=== PATIENT | male | born 1980 | race Caucasian/White ===

== ENCOUNTER → 2020-06-16 08:53 | Outpatient (CLI) | payer BC, SELFPAY ==
[2020-05-22 08:49] VITALS: BMI 28.9
[2020-06-16 12:42] LABS: Absolute Lymphocyte Count 1.97 X10^3/uL (0.83-4.51); Absolute Neutrophil Count 2.2 X10^3/uL (2.0-7.7); Basophil# 0.03 X10^3/uL; Basophil% 0.6 % (0-1); Eosinophil# 0.07 X10^3/uL; Eosinophils% 1.5 % (0-5); Hematocrit 47.1 % (40-54); Hemoglobin 15.2 g/dL (13.0-16.5); Lymphocyte # 1.97 X10^3/ul (4.0); Lymphocyte % 41.4 % (19-41); Mean Corp Hgb Conc 32.3 g/dL (32-36); Mean Corpuscular Hgb 29.2 pg (27.0-32.0); Mean Corpuscular Volume 90.4 fL (80-94); Mean Platelet Vol. 9.2 fl (6.2-12.0); Monocyte# 0.51 X10^3/uL; Monocyte% 10.7 % (0-10); NRBC Flagged by Analyzer 0 % (0-5); Neutrophil # 2.17 X10^3/uL (2.7-7.7); Neutrophil % 45.6 % (47-70); Platelet Count 298 K/mm3 (150-450); RBC Distribution Width CV 12.1 % (11.6-14.6); RBC Distribution Width SD 40.4 fl (35.1-43.9); Red Blood Count 5.21 M/mm3 (4.6-6.2); White Blood Count 4.8 K/mm3 (4.4-11.0)
[2020-06-16 13:17] LABS: ALB/GLOB Ratio 1.1 RATIO (0.9-2.4); AST(SGOT) 14 U/L (15-37); Alanine Aminotransfer ALT/SGPT 28 U/L (16-61); Albumin, Serum 4.2 g/dL (3.2-5.0); Alkaline Phosphatase 79 U/L (45-117); Anion Gap 5 (5-15); BUN 14 mg/dL (7-18); Calcium,Total 8.9 mg/dL (8.5-10.1); Chloride 104 mmol/L (98-107); Cholesterol 180 mg/dL (200); Creatinine, Serum 0.93 mg/dL (0.70-1.30); EST Glomerular Filtration Rate 95 mL/min (>60); Est Glom Filt Rate - Afr Amer 115 mL/min (>60); Globulin 3.8 g/dL (2.2-4.2); Glucose 101 mg/dL (74-106); High Density Lipoprotein 37 mg/dL; PSA,Total - Annual Screen 0.59 ng/mL (0.00-4.00); Potassium 4.3 mmol/L (3.5-5.1); Sodium Level 138 mmol/L (136-145); Triglycerides 86 mg/dL; Very Low Density Lipoprotein 17 mg/dL (5-40)
[2020-06-16 13:38] LABS: Hemoglobin A1c 5.6 % (3.8-5.6)
== END ==
PROVIDERS: PCP Internal Medicine; Referring Provider Internal Medicine; Visit Provider Internal Medicine
DX: K42.9 Umbilical hernia without obstruction or gangrene (principal); Z12.5 Encounter for screening for malignant neoplasm of prostate; Z13.1 Encounter for screening for diabetes mellitus; Z13.220 Encounter for screening for lipoid disorders; Z76.89 Persons encountering health services in other specified circumstances
CPT/HCPCS: 36415; 80053; 80061; 83036; 84153; 85025; G0103

== ENCOUNTER 2020-06-17 05:46 | Day surgery (SDC) | payer BC, SELFPAY ==
[2020-05-22 08:49] VITALS: BMI 28.9
--- NOTE | 2020-06-17 05:57 | PCM.HP.BLA ---
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 Jesus Hoff MD) Umbilical hernia without obstruction and without gangrene (Acute) Encounter for sterilization (Acute) Back problem (Chronic) History of fracture of leg (Acute) History of fracture of arm (Acute) Surgical History (Updated 05/22/20 @ 08:49 by Rachna López) History of repair of laceration (Acute) History of surgery on left wrist (Acute) History of tonsillectomy (Acute) Family History Mother Thyroid disorder Heart disease Father Heart disease Grandmother Hypertension Kidney disease Diabetes Cancer pancreatic Grandfather Heart disease Other Aneurysm Myocardial infarction Social History (Updated 05/22/20 @ 09:[address] Jesus Hoff MD) Smoking Status: Never smoker alcohol intake: current alcohol intake frequency: a few times a month substance use type: does not use what type of physical activity do you participate in: none HPI HPI HPI: VIOLETA SLAUGHTER is a 39 M who presents to the office today for surgical consultation for consideration of bilateral partial vasectomy as a means of sterilization as well as treatment of his symptomatic umbilical hernia. The patient is referred by his primary care physician Dr. Greer Gonzalez and a written copy of my surgical consult and recommendations will return to him. For quite a period of time the patient has been having intermittent periumbilical discomfort. He himself was never aware that he had an umbilical hernia. This was detected on recent clinical examination per Dr. Gonzalez. The patient works at [employer]. He does a variety of different tasks. Some of it does involve lifting. He does not recall any specific injury. He is also requesting consideration for bilateral partial vasectomy as a means of sterilization HPI HPI HPI: VIOLETA SLAUGHTER is a 39 M who presents to the office today for ROS General General: No weight change, appetite, fatigue, colon cancer, breast cancer or weakness HEENT HEENT: No difficulty swallowing, eye injury, eye surgery, swollen glands or hoarseness Endo Endocrine: No thyroid disease, diabetes mellitus, thyroid cancer, Hair loss, heat intolerance or cold intolerance Musc Musculoskeletal: No back problems, arthritis, rheumatoid arthritis, gout or joint pain Cardio Cardiovascular: No murmur, pacemaker, heart disease, atrial fibrillation, high blood pressure, heart attack, heart stent, palpitations, shortness of breat with exertion or chest pain Psych Psychiatric: No depression, anxiety or hearing voices Resp Respiratory: No shortness of breath, No sleep apnea, No cough, No COPD, No asthma, No emphysema, No wheezing Gastro Gastrointestinal: No abdominal pain, No nausea or vomiting, No diarrhea, No constipation, No blood in stool, No acid reflux, No hemorrhoids, No ulcers, No gallbladder problem, No black,tarry stools Juan Hematologic: No blood thinners, No blood disorders, No bleeding, No anemia, No blood clots Neuro Neurologic: No weakness Exam Const General: cooperative, healthy appearing, comfortable, no acute distress Nutritional Appearance: overweight Orientation: alert, awake [facility] [place] Head: normal to inspection Eyes General: appearance normal, both eyes and all related structures Chest Chest palpation & inspection: normal inspection of the chest Resp Effort & Inspection: normal respiratory effort Auscultation: clear to auscultation bilaterally Cardio Rate: regular rate Rhythm: regular rhythm Heart Sounds: no murmurs GI Palpation: soft, no hepatosplenomegaly Other: Small umbilical hernia, slightly tender to deep palpation, partially reducible, no findings to suggest bowel involvement Other: Testicles are descended, no focal mass, vas deferens are palpable, groins are solid, no obvious inguinal defects Musc Cervical Spine: normal cervical lordosis Skin General: no rashes or lesions noted Neuro Cognition: normal cognition Extrem General: no calf tenderness Psych Affect: normal affect Assessment & Plan Problems 1. Encounter for sterilization Z30.2 2. Umbilical hernia without obstruction and without gangrene K42.9 Plan Encounter for sterilization. I have described the technique, benefit, risk, alternatives. Absolutely no guarantees of success of been offered. The patient has additionally been provided written descriptive information. He is aware that no guarantees of success were offered. He is additionally aware that I consider this to be a permanent technique. He is aware that it is his responsibility perform semen specimen submission post procedure. He has had an opportunity to ask no questions answered he is comfortable with the discussion would like to schedule and proceed as noted. On clinical examination and purpose for his referral he has a symptomatic umbilical hernia. I suspect that there is some fibrofatty preperitoneal tissue present. I propose for him a direct repair at the umbilical site. I would anticipate utilizing a Ventralex mesh. I also discussed technique, benefit, risk, alternatives. He has had an opportunity to ask and have questions answered in addition he would like to schedule. I believe that both of these procedures can be performed in a combined technique in the operating room under general anesthesia. I appreciate the opportunity of assisting with her surgical care. Copy: Dr. Greer Hoff M.D., F.A.C.S. Coding Level of Care Code 23108 Diagnoses Encounter for sterilization Z30.2 Umbilical hernia without obstruction and without gangrene K42.9 I have re-examined the patient. There are no clinical changes since date of exam. Procedure Criteria Procedure Type: Elective COVID Risk Discussion: The surgeon/proceduralist and patient have discussed in detail the risk of exposure to and/or potential harm posed by the COVID-19 virus with having a surgery/procedure at this time versus the risk of delaying the surgery/procedure. It is not possible to know either the risk of delaying the surgery or procedure or chance of getting an infection with perfect accuracy, but a joint decision was made between the patient and the surgeon/proceduralist to proceed at this time with the scheduled surgery/procedure as indicated on the consent form.
--- NOTE | 2020-06-17 06:18 | DCINST_ITS ---
Discharge Diet: Light diet - advance as tolerated - if you have questions about your diet instructions, please talk to you doctor. Discharge Activity: May Not Drive - for 3-5 days or while taking narcotic pain medicine. May shower in (days): 1 Lifting Restrictions: 10 pounds Call your doctor if your incision/area has: Continuous Slow Oozing, Sudden Increased Bleeding, Increased Pain/ Swelling, Increased Redness, Foul Smelling Discharge Call your doctor if you observe: Fever of 101 or Higher Suture Line Care: Avoid Pulling/Pushing, Avoid Pinching/Bending Additional Dressing/Incision Instructions:: Change or remove dressing in 4 days. Leave steri-strips in place for 1 week. You may apply a very small amount of antibiotic ointment to the suture site bilateral scrotum. Utilize dry gauze to help protect the small incisions from clothing. Use supportive undergarments. You may liberally use ice to help limit swelling. Allergies/Adverse Reactions: Allergies No Known Allergies Allergy (Verified 06/10/20 09:01) Medications to take at Discharge NK 05/08/20 Primary Care Physician: Greer Gonzalez MD [Primary Care Provider] - Test Results: Test results from this visit will be discussed in further detail at your follow- up appointment, if applicable. Please Follow Up With: Jesus Hoff MD - [phone] When: Call to make an appointment to be seen in about 10 days.
[2020-06-17 06:35] VITALS: BP 127/92; PULSE 84; RESP 16; TEMP 36.6; O2SAT 98; BMI 28.9
[2020-06-17] MEDS: Lactated Ringers 1,000 ML 75 ML IV (07:30)
--- NOTE | 2020-06-17 07:30 | VAS_PTH ---
PATIENT: VIOLETA SLAUGHTER LOC: [facility] [place] U#:[id number] AGE/SX: 39/M ROOM: RE06/17/[address]: Dr. Jesus Hoff MD : 1980 BED: DIS: 06/17/2020 SPEC #: [id number] RECD: 06/17/20 09:23 STATUS: SEAMUS JENNA #: [id number] WERNER: 06/17/20 07:[address]: Jesus Hoff DEPT: SURGICAL PATHOLOGY RECD BY: Luisa Bingham ENTERED: 06/17/20 10:35 SP TYPE: VAS OTHR DR: Dr. Greer Gonzalez MD Tissues: A - Vas deferens, NOS B - Vas deferens, NOS Procedures: Surgery Specimen Level II HEADER OPERATION: Umbilical hernia repair with mesh and partial vasectomy PRE-OP DIAGNOSIS: Umbilical hernia; sterilization TISSUE SUBMITTED: A - Right vas deferens, B - Left vas deferens MICROSCOPIC DIAGNOSIS A. Right vas deferens, segmental vasectomy: Complete cross-section of vas deferens with no pathologic change. B. Left vas deferens, segmental vasectomy: Complete cross-section of vas deferens with no pathologic change. AM:betzy 06/18/2020 MICROSCOPIC DESCRIPTION Slides are reviewed. GROSS DESCRIPTION A - Received is one container designated right vas deferens. The specimen consists of a tubular segment of lam soft tissue measuring 2 cm in length and 0.2 cm in diameter. The entire specimen is submitted in one cassette. It will be sectioned at the time of embedding. B - Received is one container designated left vas deferens. The specimen consists of a tubular segment of lam soft tissue measuring 1.6 cm in length and 0.2 cm in diameter. The entire specimen is submitted in one cassette. It will be sectioned at the time of embedding. / SJ:betzy 06/17/20 TC:4 CPT: 94576 x2
[2020-06-17] MEDS: Cefazolin 2 GM in 0.9% Normal Saline 100 ML IV (08:08)
[2020-06-17] MEDS: Bupivacaine Mpf 0.5% 30 ML VIAL (08:48)
--- NOTE | 2020-06-17 08:59 | PCM.OPRPT ---
Problem List (1) Umbilical hernia without obstruction and without gangrene Status: Acute (2) Encounter for sterilization Status: Acute Report of Operation Date of Procedure: 06/17/20 Pre-Operative Diagnosis: Umbilical hernia, encounter for sterilization Post-Operative Diagnosis: Same Surgery/Procedure Performed:: Medical herniorrhaphy with 6.4 cm ventralex mesh reference #[id number]. Lot number [id number], expiry date 04/19/2021. Bilateral partial vasectomy Description of Surgical Findings:: Timeout and informed consent was obtained. 39-year-old gentleman was taken to the operating placed on the table. He became evident that the right antecubital IV placed in a C was intra-arterial. Verbal report suggested anesthesia provided small amount of Versed through that IV before it was recognized. A new IV was started in the left arm. Patient underwent general endotracheal intubation anesthesia. Ancef 2 g given in the imaged preoperatively. Once the procedure proceeded anesthesia remove the right antecubital IV/his intra-arterial line. The hand was monitored. There was felt to be no adverse effect. Hand appeared to be viable there is no expansion at the antecubital space there is good distal pulse and capillary refill The abdomen was sterilely prepped and draped. Scrotal area was clipper and Betadine.. A curvilinear incision was made the inferior portion of the umbilicus sharp and blunt dissection was used to identify the preperitoneal fat within a 1.5 cm umbilical hernia. That preperitoneal tissue was completely inverted and the preperitoneal plane created. A 6.4 cm Ventralex mesh was inserted into the preperitoneal plane the tails were secured with interrupted 0 Nurolon. Good positioning and securement was achieved. The fascia was approximated with a 0 Nurolon. Central suture was used to affix to the mesh holding it in place. Skin edges approximated opted for Monocryl subdermal stitches. The periincisional areas anesthetized with 0.5% Marcaine a total of 20 cc. Steri-Strips Telfa cottonball OpSite dressing applied. Counts correct. Attention was drawn to the scrotal area. 0.5% Marcaine was instilled as well. Small bilateral scrotal incisions were created the vas deferens identified it was dissected free the ends were crushed segments were excised and the ends were secured with 3-0 chromic inverted and resecured. The skin edges approximated simple sutures of 3-0 chromic. Topical antibiotic ointment applied followed by gauze and compressive dressing. The specimens were individually submitted in formalin for analysis. Bilateral segments of vas deferens. Drains none. Blood loss minimal. The patient was taken to the recovery room. Jesus Hoff M.D., F.A.C.S. Type of Anesthesia:: General Anesthesiologist: Danny Eisenberg
[2020-06-17 09:10] VITALS: BP 116/81; BP 127/92; PULSE 68; RESP 16; TEMP 36.5; O2SAT 94
[2020-06-17 09:15] VITALS: BP 127/92; BP 99/79; PULSE 66; RESP 16; O2SAT 94
[2020-06-17 09:30] VITALS: BP 112/77; BP 127/92; PULSE 70; RESP 16; O2SAT 100
[2020-06-17 09:45] VITALS: BP 113/74; BP 127/92; PULSE 67; RESP 16; TEMP 36.6; O2SAT 100
[2020-06-17 11:25] VITALS: BP 127/92; BP 130/79; PULSE 70; RESP 16; TEMP 36.5; O2SAT 98
== END 2020-06-17 11:26 | disposition home or self-care (01) ==
LOC: SDC 05:47 → AC 05:47
PROVIDERS: PCP Internal Medicine; Referring Provider Surgery; Visit Provider Surgery
PROC: (CPT 49585; principal; 2020-06-17 07:15)
DX: E66.3 Overweight (principal); K42.9 Umbilical hernia without obstruction or gangrene; Z30.2 Encounter for sterilization; Z68.28 Body mass index [BMI] 28.0-28.9, adult; Z20.822 Contact with and (suspected) exposure to COVID-19
CPT/HCPCS: 00830; 49585; 55250; 87426; 88302; C1781; C9803; J7120; J2405